=== PATIENT | female | born 1995 ===

== ENCOUNTER 2025-05-28 10:06 | Observation (INO) | payer BC, SELFPAY ==
[2025-05-28 10:19] VITALS: BP 137/79; BMI 27.1
[2025-05-28 11:25] LABS: Hematocrit 35.9 % (37.0-47.0); Hemoglobin 12.7 g/dL (12.0-16.0); Mean Corp Hgb Conc. 35.4 g/dL (33.0-37.0); Mean Corpuscular Volume 90.4 fL (81.0-99.0); Nucleated Red Blood Cells % 0 %; Platelet Count 239 10^3/uL (130-400); Red Cell Dist. Width 12.6 % (11.5-14.5)
[2025-05-28 11:41] LABS: ALT (SGPT) 18 U/L (0-35); AST (SGOT) 21 U/L (14-36); Albumin 3.8 g/dl (3.5-5.0); Alkaline Phosphatase 73 U/L (38-126); Blood Urea Nitrogen 6 mg/dl (7-17); Calcium 9.5 mg/dl (8.4-10.2); Carbon Dioxide 22 mmol/L (22-30); Chloride 109 mmol/L (98-107); Estimated Creatinine Clearance > 125 ml/min; Glucose 82 mg/dl (70-99); Potassium 4.4 mmol/L (3.5-5.1); Sodium 135 mmol/L (135-145); Total Protein 6.6 g/dl (6.3-8.2); eGFR > 60.00
[2025-05-28 12:48] LABS: Urine Character Clear (Clear)
[2025-05-28 13:13] LABS: Urine Red Blood Cell 0-2 /HPF (0-2); Urine Squamous Cell 26-30 /LPF (Few)
[2025-05-28] MEDS: AMOXIL 500 MG PO (13:49)
[2025-05-28] MEDS: D5/0.9% SODIUM CHLORIDE 1000 IV (14:53)
--- NOTE | 2025-05-28 16:20 | CON.GS ---
Addendum entered and electronically signed by Gary Zamudio MD 05/28/25 16:46:
I saw and examined the patient independently.
The Plaster Form Maker's note was reviewed and I agree with the note, assessment and plan except where noted below.
Comment: This is a 29-year-old female G1, P0 who is 23 weeks who presented with severe right lower quadrant pain this morning, minimally tender on exam. Ultrasound inconclusive, our team ordered an MRI which was negative for appendicitis.
Okay for trial of diet and discharge per primary.
Patient agreeable to plan of care above.
Original Note:
Consultation
-
Date/Time Consultation Performed: 05/28/25 1620
Reason for Consultation: RLQ pain
Medical History
-
Chief Complaint: RLQ pain
History of Present Illness:
Ms Skelton is a 29 yo female who is 23 weeks presenting with severe RLQ pain which began early this morning. Pain is currently much improved but residual discomfort present. No fevers or chills. No nausea or vomiting. Surgery team
consulted to evaluate for appendicitis.
Past Medical History
Past Medical History: None
Past Surgical History: None
Social History
Tobacco: Non-Smoker
Alcohol: None
Personal:
Living: With Family
Family History
Family History: Reviewed & Not Pertinent
Allergies / Home Medications
Allergy/AdvReac Type Severity Reaction Status Date / Time
erythromycin base Allergy Hives Verified 05/28/25 10:19
morphine Allergy Anaphylaxis Verified 05/28/25 10:19
Penicillins Allergy Hives Verified 05/28/25 10:19
Sulfa (Sulfonamide Allergy Hives Verified 05/28/25 10:19
Antibiotics)
tetanus and diphtheria Allergy Unknown Verified 05/28/25 10:19
toxoids
�Medication �Instructions �Recorded �Confirmed �Type
Vitamins B Complex 1 tab PO DAILY 05/28/25 05/28/25 History
prenat.vits,tiago,ral-rvke-eftqg 1 tab PO DAILY 05/28/25 05/28/25 History
Review of Systems
-
History Source: Patient and Family
All other systems: Negative unless noted
A 10 point review of systems was completed, and was negative except as per HPI.
Physical Exam
Vital Signs
Temp Pulse Resp BP
98.1 F 79 18 137/79
05/28/25 10:19 05/28/25 10:19 05/28/25 10:19 05/28/25 10:19
05/27/25 05/28/25 05/29/25
06:59 06:59 06:59
Actual Weight 76.204 kg
Body Mass Index (BMI) 27.1
Lab Results
05/28/25 11:05
05/28/25 11:05
WBC 13.3 10^3/uL (4.8-10.8) H 05/28/25 11:05
Hgb 12.7 g/dL (12.0-16.0) 05/28/25 11:05
Hct 35.9 % (37.0-47.0) L 05/28/25 11:05
Plt Count 239 10^3/uL (130-400) 05/28/25 11:05
Abs Immat Gran (auto) 0.1 10^3/uL (0-0.05) H 05/28/25 11:05
Neutrophils % 79.3 % (42.2-75.2) H 05/28/25 11:05
Physical Exam
General: Well Developed and Well Nourished
HEENT: Moist Mucous Membranes
Respiratory: Non Labored Respirations
GI: Soft, Non Tender and Non Distended
Skin: Warm and Dry
Neuro: Awake, Alert and AO x 3
Psych: Calm
Data Reviewed
-
Ultrasound: Image Personally Visualized and interpreted, Report Reviewed by me, Discussed with Physician, Discussed with Nurse, Discussed with Patient and Discussed with Family
MRI: Image Personally Visualized and interpreted, Report Reviewed by me, Discussed with Physician, Discussed with Nurse, Discussed with Patient and Discussed with Family
Labs: Labs Reviewed by me, Discussed with Physician, Discussed with Patient and Discussed with Family
Old Records: Reviewed
Assessment / Plan
-
Ms Skelton is a 29 yo female who is 23 weeks presenting with severe RLQ pain which began early this morning. Pain has since improved. Mild leukocytosis present, suspect physiologic. Afebrile. VSS. Initial US imaging with mild bilateral
pelvicaliceal prominence but unable to visualize the appendix. MRI was ordered in follow up which demonstrates normal appendix with mild right hydronephrosis, likely physiologic in . Pain has improved without tenderness on exam.
Plan:
No plans for surgical intervention
Care as per obstetrics team
== END 2025-05-28 16:37 | disposition home or self-care (01) ==
LOC: LDRP 10:06
PROVIDERS: ADMITTING PHYSICIAN Obstetrics & Gynecology; CONSULT PHYSICIAN Surgery
DX: O26.892 Other specified pregnancy related conditions, second trimester (principal); Z3A.23 23 weeks gestation of pregnancy; R10.31 Right lower quadrant pain; O99.112 Other diseases of the blood and blood-forming organs and certain disorders involving the immune mechanism complicating pregnancy, second trimester; D72.829 Elevated white blood cell count, unspecified; N13.30 Unspecified hydronephrosis; Z88.1 Allergy status to other antibiotic agents; Z88.0 Allergy status to penicillin; Z88.2 Allergy status to sulfonamides; Z88.7 Allergy status to serum and vaccine
CPT/HCPCS: 74181; 76705; 76775; 76815; 80053; 81003; 81015; 85025; 86850; 86900; 86901; 87086; G0378